=== PATIENT | male | born 1955 | race Caucasian/White ===

== ENCOUNTER 2017-08-23 12:21 | Inpatient (IN) | payer OTHER ==
[2017-08-23] VITALS (213 sets, daily range): BP systolic 132–146; BP diastolic 46–98; PULSE 82–93; TEMP 98.3–98.4; O2SAT 76–100
[~2017-08-23] VITALS: Ht 180.3 cm; Wt 59.9 kg
[~2017-08-23 12:21] MED LIST: NO HOME MEDICATIONS
[2017-08-23 12:50] LABS: BASO # 0.1 (0.0-0.2); BASO % 0.6 % (0.0-2.0); EOS % 0.3 % (0-4.0); GRAN # 7.2 (1.4-6.5); GRAN % 69.4 % (42.2-75.2); LYMPH # 2.1 (1.2-3.4); LYMPH % 20.2 % (20.0-51.0); MEAN CELL VOLUME 91 fl (80.0-100.0); MEAN CORPUSCULAR HEMOGLOBIN 31 pg (27.0-31.0); MEAN CORPUSCULAR HGB CONC 34 g/dl (33.0-37.0); MEAN PLATELET VOLUME 9.7 fl (7.4-10.4); MONO # 0.9 (0.1-0.6); PLATELET COUNT 255 K/mm3 (130-400); RED BLOOD COUNT 5.16 M/mm3 (4.20-5.60); REDCELL DISTRIBUTION WIDTH-CV 12.6 % (11.5-14.5)
[2017-08-23 13:06] LABS: ALBUMIN 4.1 gm/dL (3.5-5.0); BILIRUBIN,TOTAL 0.9 mg/dL (0.0-1.0); CALCIUM 9.6 mg/dL (8.4-10.2); CREATININE, serum 0.66 mg/dL (0.66-1.25); POTASSIUM 4.1 mmol/L (3.4-5.0); TOTAL PROTEIN 7.6 gm/dL (6.4-8.2)
[2017-08-23 13:25] LABS: TROPONIN-I 0.038 ng/mL (0.000-0.034)
[2017-08-24] VITALS (432 sets, daily range): BP systolic 123–139; BP diastolic 77–88; PULSE 71–120; TEMP 98–98.6; O2SAT 60–100
[2017-08-24 05:34] LABS: BASO # 0.1 (0.0-0.2); BASO % 0.6 % (0.0-2.0); EOS # 0.1 (0.0-0.7); EOS % 1.1 % (0-4.0); GRAN # 4.8 (1.4-6.5); GRAN % 61.5 % (42.2-75.2); HEMATOCRIT 39.1 % (42.0-52.0); HEMOGLOBIN 13.2 g/dl (13.5-18.0); LYMPH # 2.1 (1.2-3.4); LYMPH % 26.4 % (20.0-51.0); MEAN CELL VOLUME 91 fl (80.0-100.0); MEAN CORPUSCULAR HEMOGLOBIN 31 pg (27.0-31.0); MEAN CORPUSCULAR HGB CONC 34 g/dl (33.0-37.0); MEAN PLATELET VOLUME 9.5 fl (7.4-10.4); MONO # 0.8 (0.1-0.6); MONO % 9.8 % (1.7-9.3); PLATELET COUNT 198 K/mm3 (130-400); RED BLOOD COUNT 4.31 M/mm3 (4.20-5.60); REDCELL DISTRIBUTION WIDTH-CV 12.6 % (11.5-14.5)
[2017-08-24 05:43] LABS: PROTHROMBIN TIME 11.9 SECONDS (9.7-12.8)
[2017-08-24 05:47] LABS: CALCIUM 8.8 mg/dL (8.4-10.2); CREATININE, serum 0.66 mg/dL (0.66-1.25); POTASSIUM 3.9 mmol/L (3.4-5.0)
[2017-08-24] MEDS ORDERED: LEVAQUIN 750MG750 M1 PO (16:01)
[2017-08-24] MEDS ORDERED: PREDNISONE20 MG PO (16:01)
[2017-08-24] MEDS ORDERED: PROAIR HFA0.09 MG/AC IH (16:07)
[2017-08-24] MEDS ORDERED: IPRATROPIUM BROM3 M1 IH (16:10)
== END 2017-08-24 17:14 | disposition home or self-care (01) | DRG 181 ==
LOC: COL.ER 12:21 → ICU 15:19
PROVIDERS: Emergency Medicine; Internal Medicine Pulmonary Disease; Physician Assistant
PROC: 0B968ZX Drainage of Right Lower Lobe Bronchus, Via Natural or Artificial Opening Endoscopic, Diagnostic (ICD-10-PCS; 2017-08-24)
PROC: 0B988ZX Drainage of Left Upper Lobe Bronchus, Via Natural or Artificial Opening Endoscopic, Diagnostic (ICD-10-PCS; 2017-08-24)
PROC: 0B9B8ZX Drainage of Left Lower Lobe Bronchus, Via Natural or Artificial Opening Endoscopic, Diagnostic (ICD-10-PCS; 2017-08-24)
PROC: 0BB78ZX Excision of Left Main Bronchus, Via Natural or Artificial Opening Endoscopic, Diagnostic (ICD-10-PCS; 2017-08-24)
PROC: 0B958ZX Drainage of Right Middle Lobe Bronchus, Via Natural or Artificial Opening Endoscopic, Diagnostic (ICD-10-PCS; principal; 2017-08-24 10:00)
DX: C34.12 Malignant neoplasm of upper lobe, left bronchus or lung (principal); J98.11 Atelectasis; Z85.72 Personal history of non-Hodgkin lymphomas; F17.210 Nicotine dependence, cigarettes, uncomplicated; F10.10 Alcohol abuse, uncomplicated
CPT/HCPCS: 99223-AI; 99239; J1644; J1956; J2550; J2704; J7030; Q9967

== ENCOUNTER → 2017-09-01 | Outpatient (CLI) | payer OTHER ==
[~2017-09-01] MED LIST changes: +IPRATROPIUM BROM3 M1 IH; +LEVAQUIN 750MG750 M1 PO; +PREDNISONE20 MG PO; +PROAIR HFA0.09 MG/AC IH
== END ==
LOC: COL.RAD 07:30
DX: D41.01 Neoplasm of uncertain behavior of right kidney (principal); K76.9 Liver disease, unspecified; J90 Pleural effusion, not elsewhere classified; M62.58 Muscle wasting and atrophy, not elsewhere classified, other site; K80.20 Calculus of gallbladder without cholecystitis without obstruction; C34.90 Malignant neoplasm of unspecified part of unspecified bronchus or lung; Z98.890 Other specified postprocedural states
CPT/HCPCS: A9585; Q9967

== ENCOUNTER → 2017-09-16 | Outpatient (CLI) | payer OTHER ==
[~2017-09-16] VITALS: Ht 180.3 cm; Wt 61.7 kg
[~2017-09-16] MED LIST changes: +NORCO 325 MG-51 TAB PO
[2017-09-16 11:33] VITALS: BP 125/86; PULSE 100
== END ==
LOC: COL.RAD 11:02
DX: C34.90 Malignant neoplasm of unspecified part of unspecified bronchus or lung (principal)

== ENCOUNTER 2017-09-20 05:21 | Day surgery (SDC) | payer OTHER ==
[~2017-09-20] VITALS: Ht 180.3 cm; Wt 61.8 kg
[~2017-09-20 05:21] MED LIST changes: -NORCO 325 MG-51 TAB PO
[2017-09-20 05:52] VITALS: BP 125/84; PULSE 94; TEMP 97.7
[2017-09-20 08:04] VITALS: BP 110/74; PULSE 86
[2017-09-20 08:19] VITALS: BP 120/71; PULSE 69
[2017-09-20] MEDS ORDERED: NORCO 325 MG-51 TAB PO (08:31)
[2017-09-20 08:34] VITALS: BP 122/76; PULSE 78
== END 2017-09-20 09:05 | disposition home or self-care (01) ==
LOC: SDCO 05:21
DX: C34.90 Malignant neoplasm of unspecified part of unspecified bronchus or lung (principal); F17.210 Nicotine dependence, cigarettes, uncomplicated; J44.9 Chronic obstructive pulmonary disease, unspecified; M19.90 Unspecified osteoarthritis, unspecified site; I20.9 Angina pectoris, unspecified; Z88.2 Allergy status to sulfonamides; Z79.51 Long term (current) use of inhaled steroids; Z80.0 Family history of malignant neoplasm of digestive organs; Z80.1 Family history of malignant neoplasm of trachea, bronchus and lung; Z85.72 Personal history of non-Hodgkin lymphomas
CPT/HCPCS: C1788; J0690; J1644; J2250; J2405; J2704; J3010; J7030

== ENCOUNTER → 2018-10-17 | Outpatient (CLI) | payer MEDICAID ==
[~2018-10-17] MED LIST changes: +NORCO 325 MG-51 TAB PO
== END ==
LOC: COL.RAD 12:19
DX: C34.02 Malignant neoplasm of left main bronchus (principal); C79.31 Secondary malignant neoplasm of brain
CPT/HCPCS: A9585

== ENCOUNTER 2018-10-29 11:56 | Inpatient (IN) | payer MEDICAID ==
[~2018-10-29] VITALS: Ht 180.3 cm; Wt 68.9 kg
[2018-10-29] MEDS ORDERED: BENADRYL25 M2 PO (13:05)
[2018-10-29] MEDS ORDERED: PRIL40 PO (13:06)
[2018-10-29 14:44] LABS: COLLECTION METHOD CLEAN CATCH
[2018-10-29 14:51] LABS: PH 6 (5-8); SQUAMOUS EPITHELIAL None Seen /hpf; URINE APPEARANCE Clear; URINE BACTERIA None Seen /hpf; URINE BILIRUBIN Negative (NEGATIVE); URINE BLOOD Negative (NEGATIVE); URINE COLOR Yellow; URINE GLUCOSE Negative (NEGATIVE); URINE KETONE Negative (NEGATIVE); URINE LEUKOCYTE ESTERASE Negative (NEGATIVE); URINE NITRATE Negative (NEGATIVE); URINE PROTEIN(semi-quant) 1+ (NEGATIVE); URINE RBC 0-2 /hpf
[2018-10-29 15:15] LABS: MEAN CELL VOLUME 81 fl (80.0-100.0); MEAN CORPUSCULAR HGB CONC 32 g/dl (33.0-37.0); MEAN PLATELET VOLUME 9.5 fl (7.4-10.4); PLATELET COUNT 646 K/mm3 (130-400); RED BLOOD COUNT 3.34 M/mm3 (4.20-5.60); REDCELL DISTRIBUTION WIDTH-CV 16.4 % (11.5-14.5)
[2018-10-29 15:21] LABS: HEMOGLOBIN 8.5 g/dl (13.5-18.0); MEAN CORPUSCULAR HEMOGLOBIN 25 pg (27.0-31.0)
[2018-10-29 15:28] LABS: BILIRUBIN,TOTAL 0.6 mg/dL (0.0-1.0); CALCIUM 9.2 mg/dL (8.4-10.2); CREATININE, serum 0.75 (0.66-1.25); POTASSIUM 3.8 mmol/L (3.4-5.0); TOTAL PROTEIN 6.4 gm/dL (6.4-8.2)
[2018-10-29 15:54] LABS: BAND 2 % (0-10); LYMPHOCYTE 3 % (20.0-51.0); NEUTROPHILS 93 % (42.0-75.2)
[2018-10-29 15:55] LABS: PLATELET ESTIMATE INCREASED (NORMAL)
[2018-10-29 16:00] LABS: ANISOCYTOSIS 1+; HYPOCHROMIA 2+; MICROCYTOSIS 2+; STOMATOCYTE 1+
--- NOTE | 2018-10-29 19:35 | NUR ---
Received patient from ED per stretcher. Is alert and oriented x3. Son and daughter at bedside. Has right chest port accessed. Has oxygen on at 3L/nc. Patient has a stage II wound to top of buttock crease. Has bruises to left arm from fall at home. Admission questions reviewed with patient and daughter.
[2018-10-29] MEDS ORDERED: MEGACE ORAL40 MG/ML PO (19:59)
[2018-10-29] MEDS ORDERED: COMPAZINE 110 MG/TAB PO (20:05)
[2018-10-29] MEDS ORDERED: 00186-0370-20 IH (20:06)
[2018-10-29 20:45] VITALS: BP 98/62; PULSE 86; TEMP 97.5
[2018-10-29 20:52] VITALS: BP 98/62; PULSE 85; TEMP 97.5
--- NOTE | 2018-10-29 21:26 | NUR ---
MEDICATED WITH MORPHINE 2MG IVP FOR PAIN TO LEFT BACK 12/02, ALSO GIVEN COMPAZINE ORALLY AND BENADRYL 25MG ORALLY AT THIS TIME. IVF INFUSING TO RIGHT PORT AND VANCOMYCIN INFUSING WITHOUT PROBLEM. PLACED MEPILEX TO SACRUM, HAS STAGE II ULCER TO TOP OF BUTTOCK CREASE.
--- NOTE | 2018-10-29 23:43 | NUR ---
PATIENT COMPLAINING OF LEFT BACK PAIN. MEDICATED WITH MORPHINE 2MG IVP AT THIS TIME. HAS OXYGEN ON AT 3L/NC.
--- NOTE | 2018-10-29 23:59 | NUR ---
Phoned Glo EATON regarding patients high heart rate as reported by ICU motor vehicle technician.
[2018-10-30] VITALS (1183 sets, daily range): BP systolic 90–111; BP diastolic 53–76; PULSE 75–118; TEMP 97.6–99; O2SAT 64–100
[2018-10-30 00:13] LABS: CALCIUM 8.1 mg/dL (8.4-10.2); CREATININE, serum 0.68 (0.66-1.25); MAGNESIUM 1.6 mg/dL (1.6-2.3); POTASSIUM 3.3 mmol/L (3.4-5.0)
--- NOTE | 2018-10-30 00:34 | NUR ---
REPORT TO LINDA MITTAL.
[2018-10-30 00:40] LABS: ARTERIAL BLD GAS O2 SATURATION 94.7 % (92-100); ARTERIAL BLOOD GAS BASE EXCESS -2.6 (-2-2); ARTERIAL BLOOD GAS PCO2 29.5 mmHg (35-45); ARTERIAL BLOOD GAS PO2 77.8 mmHg (80-100); ARTERIAL BLOOD GAS pH 7.47 (7.35-7.45)
--- NOTE | 2018-10-30 01:00 | NUR ---
Transferred to ICU 6 per bed, personal belongings sent with patient.
[2018-10-30 01:01] LABS: MEAN CELL VOLUME 81 fl (80.0-100.0); MEAN CORPUSCULAR HGB CONC 32 g/dl (33.0-37.0); MEAN PLATELET VOLUME 9.5 fl (7.4-10.4); PLATELET COUNT 557 K/mm3 (130-400); RED BLOOD COUNT 2.81 M/mm3 (4.20-5.60); REDCELL DISTRIBUTION WIDTH-CV 16.8 % (11.5-14.5)
[2018-10-30 01:06] LABS: HEMATOCRIT 22.8 % (42.0-52.0); HEMOGLOBIN 7.3 g/dl (13.5-18.0); MEAN CORPUSCULAR HEMOGLOBIN 26 pg (27.0-31.0)
[2018-10-30 01:49] LABS: BAND 24 % (0-10); LYMPHOCYTE 6 % (20.0-51.0); METAMYELOCYTE 1 % (0-0); NEUTROPHILS 67 % (42.0-75.2)
[2018-10-30 01:50] LABS: ANISOCYTOSIS 1+; OVALOCYTES 1+; POIKILOCYTOSIS 1+; POLYCHROMASIA 1+; TARGET CELLS 1+
[2018-10-30 01:52] LABS: HYPOCHROMIA 2+; PLATELET ESTIMATE NORMAL (NORMAL)
[2018-10-30 05:35] LABS: BASO % 0.2 % (0.0-2.0); EOS % 0.1 % (0-4.0); GRAN # 19.8 (1.4-6.5); GRAN % 89.4 % (42.2-75.2); LYMPH # 0.7 (1.2-3.4); LYMPH % 3.3 % (20.0-51.0); MEAN CELL VOLUME 81 fl (80.0-100.0); MEAN CORPUSCULAR HGB CONC 32 g/dl (33.0-37.0); MEAN PLATELET VOLUME 9.2 fl (7.4-10.4); MONO # 0.9 (0.1-0.6); MONO % 3.9 % (1.7-9.3); PLATELET COUNT 548 K/mm3 (130-400); RED BLOOD COUNT 2.95 M/mm3 (4.20-5.60); REDCELL DISTRIBUTION WIDTH-CV 16.7 % (11.5-14.5)
[2018-10-30 05:37] LABS: HEMATOCRIT 23.9 % (42.0-52.0); HEMOGLOBIN 7.6 g/dl (13.5-18.0); MEAN CORPUSCULAR HEMOGLOBIN 26 pg (27.0-31.0)
[2018-10-30 05:47] LABS: CREATININE, serum 0.63 (0.66-1.25); MAGNESIUM 2.9 mg/dL (1.6-2.3); PHOSPHOROUS 3.5 mg/dL (2.5-4.5); POTASSIUM 3.9 mmol/L (3.4-5.0)
--- NOTE | 2018-10-30 07:00 | NUR ---
Bedside shift report received from KYRIE Chino. Patient is awake, alert, and responds appropriately. Full assessment completed. Vital signs stable at this time. Patient has no complaints or concerns at this time. Call light within reach. Bed in lowest position. Side rails up x3.
--- NOTE | 2018-10-30 08:05 | NUR ---
Patient's daughter, Andie Sylvester, called to receive update on her father. Daughter notified of patient transfer to ICU and reason for transferring. Daughter's questions and concerns answered at this time.
--- NOTE | 2018-10-30 08:57 | NUR ---
SW met with the patient to discuss a discharge plan. The pt live alone in [place]. Pt reports his daughter lives five miles away and his son lives [address] and provide lots of support. The pt uses oxygen and receives his supplies from [employer] and has a walker he uses daily. The pt's PCP is LAUREN Gonzales and receives his medication from [facility] in [place] with no difficulties. The pt does not have advanced directives in the EMR but reports he does have them completed and designate his daughter, Rin Sylvester and his son Reagan Castillo. Pt plans to return home with transportation provided by his son. SW will continue to follow to assist with any discharge needs. Rin Sylvester Reagan Castillo
--- NOTE | 2018-10-30 13:15 | NUR ---
Patient's daugther, Andie, is present at the bedside at this time. Dr. Barbosa at the bedside to assess the patient and discuss the procedure. Patient and daughter's questions were answered and discussed the patient's code status. The patient tells his daughter that he does not want to be intubated. The patient and daughter together decide on DO NOT INTUBATE code status and order placed.
--- NOTE | 2018-10-30 14:26 | NUR ---
Pallative care consult was ordered. SW will continue to follow.
--- NOTE | 2018-10-30 15:07 | NUR ---
Met with pt and his daughter this afternoon to discuss goals of care. Pt is still very determined to keep fighting at this time after everything he has been through this last year. He is planning on talking with Dr Shepherd tomorrow morning about where we go from here with cancer treatments/chemotherapy and is well aware that chemotherapy may be stopped. See palliative care consult.
--- NOTE | 2018-10-30 15:19 | NUR ---
Pt reports that he does not want to live on machines. Because of this he does not want to be intubated. When asked if his heart were to stop, he reports wanting compressions to be done to try to keep him alive if at all possible but without a breathing tube. This was repeated and verified several times.
--- NOTE | 2018-10-30 15:53 | NUR ---
Pt's returned case inspector Ana Luisa from [facility] p# contacted SW about a Crisis Expection form. Ana Luisa to fax form to SW. SW will continue to follow.
--- NOTE | 2018-10-30 17:26 | NUR ---
Patient is possibly having a procedure done this evening, holding food and water intake for now.
--- NOTE | 2018-10-30 18:20 | NUR ---
Dr. Barbosa at bedside to perform chest tube placement. Anesthesia present.
--- NOTE | 2018-10-30 19:53 | NUR ---
Bedside shift report given to KYRIE Chino at this time. Patient remains stable in no apparent distress with no complaints or concerns at this time. Call light within reach. Bed in lowest position. Side rails up x3. Family at bedside.
[2018-10-31] VITALS (880 sets, daily range): BP systolic 107–141; BP diastolic 61–97; PULSE 82–121; TEMP 97.5–98.6; O2SAT 70–100
[2018-10-31 07:08] LABS: MEAN CELL VOLUME 81 fl (80.0-100.0); MEAN CORPUSCULAR HGB CONC 31 g/dl (33.0-37.0); MEAN PLATELET VOLUME 9.5 fl (7.4-10.4); PLATELET COUNT 558 K/mm3 (130-400); RED BLOOD COUNT 2.88 M/mm3 (4.20-5.60); REDCELL DISTRIBUTION WIDTH-CV 17.1 % (11.5-14.5)
[2018-10-31 07:11] LABS: CALCIUM 8.2 mg/dL (8.4-10.2); CREATININE, serum 0.64 (0.66-1.25); POTASSIUM 4.5 mmol/L (3.4-5.0)
[2018-10-31 07:12] LABS: HEMATOCRIT 23.3 % (42.0-52.0); HEMOGLOBIN 7.3 g/dl (13.5-18.0); MEAN CORPUSCULAR HEMOGLOBIN 25 pg (27.0-31.0)
[2018-10-31 08:02] LABS: BAND 2 % (0-10); LYMPHOCYTE 5 % (20.0-51.0); NEUTROPHILS 93 % (42.0-75.2)
[2018-10-31 08:03] LABS: ANISOCYTOSIS 1+; HYPOCHROMIA 3+; PLATELET ESTIMATE INCREASED (NORMAL)
--- NOTE | 2018-10-31 08:34 | NUR ---
Pt resting in bed, c/o 7/10 pain in lower back, family discussing DNR/DNI status with each other and pt. Possible tx to floor today. CT remains in place, pt denies pain at the site. Will tx pain and continue to monitor.
--- NOTE | 2018-10-31 12:16 | NUR ---
Met with pt and his daughter Darren again today after they had visited with their doctors. Pt is at this time wanting to continue his care with antibiotics, and IV fluids, and the chest tube drainage. He is still wanting to fight his illness as long as he can but also knows that he is getting weaker. They are aware that his chemotherapy will not be given based on his current state and that he may not get stronger to allow further chemotherapy. While Darren is tearful, she is realistic, knows he father's time is limited but wants to respect his wishes and at this time he still wants to keep fighting. There are two sons also but neither have been very involved in the care of their father--he turns to darren and verbalizes trust in her and her decisions.
--- NOTE | 2018-10-31 14:15 | NUR ---
SW attended clinical rounds. Patient's daughter was also present. Patient will be moved to the surgical floor today. Doctor reports that once patient 's chest tube is removed, PT/OT will do an evaluation. SW will continue to follow.
--- NOTE | 2018-10-31 15:58 | NUR ---
Report given to KYRIE Artis, pt denies pain at this time VSS or at baseline, will tx pt to 322-2 and tx care to KYRIE Hoff
--- NOTE | 2018-10-31 17:21 | NUR ---
PT TO ROOM 322 @ 1700. REPORT FROM JUDD. PT SETTLED TO ROOM.
--- NOTE | 2018-10-31 19:40 | NUR ---
Pt. laying in bed at this time. Pt. is A&OX3, assessment complete. Port to Rt. chest patent, IV fluids infusing per orders. Pt. denies pain at this time. Chest tube to lt. chest noted, to waterseal with 20cm suction. Pt. denies further needs, at this time. Call light within reach.
[2018-11-01 03:38] VITALS: BP 133/89; PULSE 117; TEMP 97.7
[2018-11-01 06:06] LABS: MEAN CELL VOLUME 81 fl (80.0-100.0); MEAN CORPUSCULAR HGB CONC 32 g/dl (33.0-37.0); MEAN PLATELET VOLUME 9.4 fl (7.4-10.4); PLATELET COUNT 602 K/mm3 (130-400); RED BLOOD COUNT 2.98 M/mm3 (4.20-5.60); REDCELL DISTRIBUTION WIDTH-CV 17.2 % (11.5-14.5)
[2018-11-01 06:07] LABS: HEMATOCRIT 24.1 % (42.0-52.0); HEMOGLOBIN 7.6 g/dl (13.5-18.0); MEAN CORPUSCULAR HEMOGLOBIN 26 pg (27.0-31.0)
[2018-11-01 06:15] LABS: ALBUMIN 2.3 gm/dL (3.5-5.0); BILIRUBIN,TOTAL 0.2 mg/dL (0.0-1.0); CALCIUM 8.2 mg/dL (8.4-10.2); CREATININE, serum 0.74 (0.66-1.25); POTASSIUM 4.2 mmol/L (3.4-5.0); TOTAL PROTEIN 4.9 gm/dL (6.4-8.2)
[2018-11-01 06:25] LABS: ANISOCYTOSIS 1+; BAND 18 % (0-10); HYPOCHROMIA 1+; LYMPHOCYTE 3 % (20.0-51.0); METAMYELOCYTE 7 % (0-0); NEUTROPHILS 68 % (42.0-75.2); PLATELET ESTIMATE INCREASED (NORMAL)
--- NOTE | 2018-11-01 06:59 | NUR ---
report from Frank MITTAL.
[2018-11-01 08:05] VITALS: BP 119/75; PULSE 57; TEMP 97.8
[2018-11-01 08:20] LABS: PATHOLOGY DIFF REVIEW OK
--- NOTE | 2018-11-01 10:42 | NUR ---
Initial visit; Patient thanked Material Processor for looking in on him and offering spiritual care, though patient states he is not mormonism. Material Processor just mentioned she is always available to just listen.+
--- NOTE | 2018-11-01 10:47 | NUR ---
DR GUERRERO IN TO SEE PATIENT AWAITING RESULTS OF CHEST XRAY. PT RESTING IN BED, CHEST TUBE TO SUCTION WITH MINIMAL OUTPUT. PT IS NPO FOR SURGERY LATER TODAY TO ADJUST CHEST TUBE. IV FLUIDS RUNNING PER ORDERS.
[2018-11-01 11:22] VITALS: BP 115/73; PULSE 54; TEMP 98.1
--- NOTE | 2018-11-01 14:07 | NUR ---
Luke reports that he is eating more now and is feeling positive about that. His daughter is not planning on coming today but should be here tomorrow. He has not changed his mind about his code status or desiring to try what he can to get better.
--- NOTE | 2018-11-01 14:59 | NUR ---
Edison called patients marbin Justin and left a voicemail to see what is covered by his insurance for placement.
--- NOTE | 2018-11-01 15:56 | NUR ---
pt to surgery per bed with Joanne MITTAL.
--- NOTE | 2018-11-01 16:15 | NUR ---
Spoke with pt's daughter while he is in surgery having chest tube replaced. She reports she came since he was having a procedure done.
[2018-11-01 19:29] VITALS: BP 107/62; PULSE 116; TEMP 98.6
--- NOTE | 2018-11-01 20:00 | NUR ---
Patient complaining of left chest pain secondary to chest tube. Has left chest tube to 20cm suction with yellow drainage. Has oxygen at 3L/nc, right chest Port accessed and IVF infusing without problem. Medicated with Morphine 2mg IVP at this time for pain 10/02. Has pitting edema to left arm, hand and lower legs. Coughs up yellow sputum at this time.
[2018-11-01 20:30] VITALS: BP 110/74; PULSE 119; TEMP 97.6
[2018-11-01 23:43] VITALS: BP 125/71; PULSE 117; TEMP 98.4
[2018-11-02] VITALS (136 sets, daily range): BP systolic 94–123; BP diastolic 68–79; PULSE 67–108; TEMP 97.5–99.3; O2SAT 71–100
--- NOTE | 2018-11-02 02:00 | NUR ---
Up to BSC, has liquid BM and voids. Back to bed with 1 assist.
--- NOTE | 2018-11-02 06:30 | NUR ---
Patient medicated with Morphine 2mg IV for left chest wall pain.
[2018-11-02 06:37] LABS: MEAN CELL VOLUME 82 fl (80.0-100.0); MEAN CORPUSCULAR HGB CONC 31 g/dl (33.0-37.0); MEAN PLATELET VOLUME 9.6 fl (7.4-10.4); PLATELET COUNT 578 K/mm3 (130-400); REDCELL DISTRIBUTION WIDTH-CV 17.3 % (11.5-14.5)
[2018-11-02 06:40] LABS: HEMATOCRIT 24.6 % (42.0-52.0); HEMOGLOBIN 7.6 g/dl (13.5-18.0); MEAN CORPUSCULAR HEMOGLOBIN 25 pg (27.0-31.0)
[2018-11-02 06:47] LABS: CALCIUM 7.4 mg/dL (8.4-10.2); CREATININE, serum 0.7 (0.66-1.25); POTASSIUM 3.5 mmol/L (3.4-5.0)
--- NOTE | 2018-11-02 07:00 | NUR ---
Report from Angely MITTAL.
[2018-11-02 07:30] LABS: BAND 11 % (0-10); LYMPHOCYTE 2 % (20.0-51.0); METAMYELOCYTE 6 % (0-0); MYELOCYTE 2 % (0-0); NEUTROPHILS 78 % (42.0-75.2)
[2018-11-02 07:31] LABS: HYPOCHROMIA 2+; PLATELET ESTIMATE INCREASED (NORMAL)
[2018-11-02 07:32] LABS: MICROCYTOSIS 1+
[2018-11-02 08:19] LABS: PATHOLOGY DIFF REVIEW OK
--- NOTE | 2018-11-02 11:25 | NUR ---
PT SITTING UP IN BED. HAVING BETTER DAY TODAY. CHEST TUBE TO SUCTION WITH YELLOWISH DRAINAGE IN TUBE AND CONTAINER. DR LUKE ORDING A [facility] EVALUATION. PT ON O2 @ 3 L PNC.
--- NOTE | 2018-11-02 12:26 | NUR ---
Met with pt this am. he reports he is slowly feeling better and is pleased with his progress. Reports is eating better and tube is draining better. No change in his wishes at this time.
--- NOTE | 2018-11-02 13:14 | NUR ---
SW talked with patients [facility] CM who is forwarding on the info to the brand planner to contact this sw. Need for [facility] discussed.
--- NOTE | 2018-11-02 14:01 | NUR ---
pt transfered to ICU 3 report to Segun MITTAL.
--- NOTE | 2018-11-02 14:02 | NUR ---
IV bolus pushed over 2 mins of cardizem. Patient tolerated well.
--- NOTE | 2018-11-02 15:28 | NUR ---
ALEENA faxed referral to [facility]. Jeremy reports he feels the patient is appropriate and will begin workup as it is a case by case contract with Medicare [employer]. ALEENA spoke with patients Medicare mechanical planner Елена, . She reports the patient has skilled benefits and that she will fax in network options. for specialty hospitals [facility] is in network but they also work with [facility]. ALEENA will follow up with patient.
--- NOTE | 2018-11-02 19:43 | NUR ---
Report called to KYRIE Stout.
--- NOTE | 2018-11-02 21:38 | NUR ---
PT ARRIVED FROM ICU VIA BED, HOOKED UP CHEST TUBE CANISTER TO SUCTION WITH SOFT BUBBLES. PT HAS PAIN RATED AT 6/10, GAVE NORCO FOR PAIN. ALSO GIVE WARM BLANKET FOR COMFORT. PT HAD FAMILY MEMBERS COME TO VISIT. NO FURTHER NEEDS AT THIS TIME, CALL LIGHT WITHIN REACH.
[2018-11-03] VITALS (7 sets, daily range): BP systolic 97–116; BP diastolic 60–76; PULSE 43–111; TEMP 97.3–98.8
--- NOTE | 2018-11-03 05:30 | NUR ---
CALLED AMBROCIO BARKSDALE IN REFERENCE TO EKG SHOWING ATRIAL FIBRILLATION. RT ADVISED THAT EKG WAS DONE WITH PT ON HIS SIDE AND MAY NOT BE ACCURATE. NO CHANGES FROM TELEMETRY SHOWING AND PT FEELS FINE. NO NEW ORDERS GIVEN.
--- NOTE | 2018-11-03 05:32 | NUR ---
PT REPOSITION TO RIGHT SIDE. SMALL AMOUNT OF DRAINAGE ON CHEST TUBE DRSG. CHEST TUBE TO SUCTION AND NO CHANGE IN BUBBLING ON SUCTION CANISTER. NO FURTHER NEEDS AT THIS TIME, CALL LIGHT WITHIN REACH.
[2018-11-03 06:28] LABS: MEAN CELL VOLUME 81 fl (80.0-100.0); MEAN CORPUSCULAR HGB CONC 32 g/dl (33.0-37.0); MEAN PLATELET VOLUME 9.3 fl (7.4-10.4); PLATELET COUNT 617 K/mm3 (130-400); RED BLOOD COUNT 3.13 M/mm3 (4.20-5.60); REDCELL DISTRIBUTION WIDTH-CV 17.5 % (11.5-14.5)
[2018-11-03 06:36] LABS: HEMATOCRIT 25.3 % (42.0-52.0); HEMOGLOBIN 8.1 g/dl (13.5-18.0); MEAN CORPUSCULAR HEMOGLOBIN 26 pg (27.0-31.0)
[2018-11-03 06:38] LABS: CALCIUM 7.9 mg/dL (8.4-10.2); CREATININE, serum 0.67 (0.66-1.25); POTASSIUM 3.6 mmol/L (3.4-5.0)
--- NOTE | 2018-11-03 06:59 | NUR ---
CALLED DR. BHAKTA IN REFERENCE TO PT'S WBC 24.5. NO NEW ORDERS GIVEN.
--- NOTE | 2018-11-03 08:00 | NUR ---
PATIENT IS RESTING IN BED THIS MORNING. PATIENT IS A&O. IRREGULAR HEART RHYTHM WITH REGULAR RATE NOTED, OTHERWISE VSS. TELE IN PLACE. PURSE-LIP BREATHING NOTED, PATIENT STATES THAT HE HAS SOB WITH ACTIVITY. ALL RIGHT LUNG WILKS CLEAR UPON AUSCULTATION. LEFT UPPER LUNG LOBE DIMINISHED UPON AUSCULTATION AND FINE CRACKLES AUSCULTATED OVER LEFT LOWER LUNG LOBE. GENERALIZED WEAKNESS NOTED. BOWEL SOUNDS ACTIVE ALL FOUR QUADRANTS. PATIENT TOLERATING DIET WITHOUT COMPLAINTS OF N/V. POSITIVE PEDAL PULSES EQUAL BILATERALLY. NON-PITTING EDEMA TO BLE. 2+ PITTING-EDEMA TO FEET BILATERALLY. CHEST TUBE TO LEFT CHEST DRAINING THIN YELLOW FLUID INTO WATERSEAL CANISTER WITH 20 CM OF SUCTION. CHEST TUBE INSERTION SITE DRESSED WITH GAUZE & HYPAFIX WITH YELLOW DRAINAGE PRESENT ON DRESSING. IV FLUIDS INFUSING TO RIGHT CHEST JED CATH. CALL LIGHT WITHIN REACH. PATIENT DENIES ANY OTHER NEEDS AT THIS TIME.
--- NOTE | 2018-11-03 08:40 | NUR ---
DR. BHAKTA CALLED AND NOTIFIED OF TELE READING SHOWING POSSIBLE A.FIB. EKG ORDERED PER PROTOCOL.
[2018-11-03 09:41] LABS: BAND 20 % (0-10); LYMPHOCYTE 2 % (20.0-51.0); METAMYELOCYTE 4 % (0-0); MYELOCYTE 7 % (0-0); NEUTROPHILS 66 % (42.0-75.2); NUCLEATED RED BLOOD CELL 2 (0-6)
[2018-11-03 09:43] LABS: ANISOCYTOSIS 1+; PLATELET ESTIMATE INCREASED (NORMAL)
--- NOTE | 2018-11-03 10:48 | NUR ---
ALEENA spoke with Jeremy from [employer]. He reports a prior auth will be sent to [facility] Medicaid today.
--- NOTE | 2018-11-03 15:00 | NUR ---
REPORT GIVEN TO KYRIE ASTORGA.
--- NOTE | 2018-11-03 16:29 | NUR ---
Jeremy, with [facility], reports that the earliest the patient's insurance would give authorization would probably be Tuesday, 11/06. ALEENA updated the clinica team.
--- NOTE | 2018-11-03 18:24 | NUR ---
Patient is sitting up in bed looking over supper menu. Medications administered. Offered assistance to order meal, declined. Personal items and call light is within reach.
--- NOTE | 2018-11-03 21:30 | NUR ---
PT'S HEART RATE GOES UP INTO THE 140s EVERYTIME HE USES THE URINAL. CALLED AMBROCIO BARKSDALE AND AMBROCIO BARKSDALE ORDERED EKG AND THIS WAS DONE A COUPLE OF TIMES, EACH TIME EKG WAS THE SAME ONLY SHOWING TACHYCARDIA. PT WAS IN NO DISTRESS. PT DENIED ANY CHEST PAIN OR PALPATIONS. NO OTHER ORDERS GIVEN. PT WAS ASSISTED SEVERAL TIMES TO GET COMFORTABLE IN BED. PT ALSO HAD PAIN IN LEFT AREA WERE CHEST TUBE IS. NO OTHER NEEDS CALL LIGHT WITHIN REACH.
--- NOTE | 2018-11-03 23:20 | NUR ---
CALLED DR. WARD IN REFERENCE TO PT'S HEART RATE GOING UP EVERYTIME HE USES THE URINAL AND THEN BACK DOWN. DR. WARD GAVE NO NEW ORDERS AND ADVISED JUST TO GIVE CARDIZEM ORDERED.
[2018-11-04 03:25] VITALS: BP 115/63; PULSE 61; TEMP 97.8
[2018-11-04 07:44] LABS: MEAN CELL VOLUME 82 fl (80.0-100.0); MEAN CORPUSCULAR HGB CONC 31 g/dl (33.0-37.0); PLATELET COUNT 611 K/mm3 (130-400); REDCELL DISTRIBUTION WIDTH-CV 18.4 % (11.5-14.5)
[2018-11-04 07:45] LABS: HEMATOCRIT 30.2 % (42.0-52.0); HEMOGLOBIN 9.4 g/dl (13.5-18.0); MEAN CORPUSCULAR HEMOGLOBIN 25 pg (27.0-31.0)
[2018-11-04 07:50] LABS: CALCIUM 8.3 mg/dL (8.4-10.2); CREATININE, serum 0.71 (0.66-1.25); POTASSIUM 3.5 mmol/L (3.4-5.0)
[2018-11-04 08:07] VITALS: BP 96/57; PULSE 58; TEMP 97.9
[2018-11-04 08:20] LABS: BAND 11 % (0-10); LYMPHOCYTE 12 % (20.0-51.0); NEUTROPHILS 72 % (42.0-75.2)
[2018-11-04 08:21] LABS: PLATELET ESTIMATE INCREASED (NORMAL)
--- NOTE | 2018-11-04 09:20 | NUR ---
Assessement complete. Patient A&Ox3. VSS. 3.5 L NC O2, no reported SOB. Telemetry on chest. Reporting pain in left side, pain medication given when requested. Port right upper chest, CDI. Chest tube left side suction at 15cm. Yellow output from chest tube. Water seal, continuous bubbling. No further needs expressed from patient. Call light within reach
--- NOTE | 2018-11-04 11:29 | NUR ---
Patient was sleeping.
[2018-11-04 12:04] VITALS: BP 118/98; PULSE 152; TEMP 97.2
--- NOTE | 2018-11-04 13:14 | NUR ---
Patient taken by wheelchair to CT. Chest tube suction removed from canister. Patient holding on lap in wheelchair. No further needs expressed from patient.
[2018-11-04 15:49] VITALS: BP 104/67; PULSE 79; TEMP 97.6
--- NOTE | 2018-11-04 17:24 | NUR ---
Patient has been resting in bed most of the shift. A&Ox3, reporting pain in lower back. Pain medication given when requested. VSS, HR increases with activity, telemetry on chest. 3.5L NC O2, no reported SOB. Chest tube 15cm suction with yellow output. Patient has had 2 loose BM's. PAC CDI, fluids infusing. No further needs expressed from patient. Call light within reach
--- NOTE | 2018-11-04 19:47 | NUR ---
CALLED DR. NOLASCO IN REFER TO PT'S HR IN 170S FOR OVER 5 MINUTES WITH NO MOVEMENT. RECEIVED ORDERS FOR DIGOXIN 0.25 MG IV NOW AND THEN REPEAT IN 6 HOURS FROM NOW SAME DOSAGE.
[2018-11-04 20:12] VITALS: BP 117/59; PULSE 68; TEMP 97.6
--- NOTE | 2018-11-04 20:30 | NUR ---
PT IN BED WITH HOB ELEVATED TO 60 DEGREE ANGLE. PT SLEEPING ON AND OFF. PT WAS DRINKING SEVERAL CUPS OF COFFEE ALL DAY LONG. ADVISED PT THAT THE COFFEE MAYBE THE REASON THAT HIS HEART RATE KEEPS GOING UP. PT ADVISED THAT HE WILL JUST DRINK WATER FOR NOW. PT HAS NO FURTHER NEEDS CALL LIGHT WITHIN REACH.
[2018-11-05] VITALS (7 sets, daily range): BP systolic 95–116; BP diastolic 56–77; PULSE 61–164; TEMP 97–98.2
--- NOTE | 2018-11-05 05:47 | NUR ---
PT'S HR WENT UP BETWEEN 140 AND 160, 30 MINUTES AFTER GIVING COFFEE TO PT. HR STAYED UP FOR MORE THAN 5 MINUTES, CALL AMBROCIO BARKSDALE RIGHT AWAY AND RECEIVED ORDER FOR EKG. CALLED RT AND HAD EKG DONE. PT DENIED PAIN OR DISCOMFORT. EKG SHOWED ATRIAL FIBRILLATION WITH RVR, BUT AMBROCIO BARKSDALE WENT OVER EKG AND SAW P-WAVES ON EKG. WAS ADVISED BY AMRBOCIO BARKSDALE TO CALL DR. AGUILAR. CALLED DR. AGUILAR AND ADVISED WHAT WAS GOING ON AND HE ADVISED NOT TO DO ANYTHING, HE WILL LOOK AT THE EKG WHEN HE GETS IN. CALLED AMBROCIO BARKSDALE AND ADVISED WHAT DR. AGUILAR HAD ADVISED. RECEIVED ORDER FROM AMBROCIO BARKSDALE NO CAFFINE FOR PT.
--- NOTE | 2018-11-05 08:40 | NUR ---
Pt alert and oriented. Pt pain is in rated where the left chest tube is inserted per pt. Pt states increased movements makes it worse. Pt isreal SOB at rest but SOB with minimal exertion and wears oxygen via nasal cannula to maintain saturations above 90%. Pt central line gustavo cath has blood return noted and flushes easily. Pt has mepilex on sacral ulcer. Pt assisted to BSC this am for stool that was dark brown and liquid this am. Pt chest tube intact and drsg CDI and bubbles noted in chest tube chamber. Pt has call light in reach and denies needs at this time.
[2018-11-05 08:44] LABS: MEAN CELL VOLUME 83 fl (80.0-100.0); MEAN CORPUSCULAR HGB CONC 32 g/dl (33.0-37.0); MEAN PLATELET VOLUME 9.4 fl (7.4-10.4); PLATELET COUNT 556 K/mm3 (130-400); RED BLOOD COUNT 3.53 M/mm3 (4.20-5.60); REDCELL DISTRIBUTION WIDTH-CV 19.5 % (11.5-14.5)
[2018-11-05 09:08] LABS: CALCIUM 8.1 mg/dL (8.4-10.2); CREATININE, serum 0.77 (0.66-1.25); POTASSIUM 3.6 mmol/L (3.4-5.0)
[2018-11-05 09:15] LABS: HEMATOCRIT 29.2 % (42.0-52.0); HEMOGLOBIN 9.2 g/dl (13.5-18.0); MEAN CORPUSCULAR HEMOGLOBIN 26 pg (27.0-31.0)
[2018-11-05 09:48] LABS: LYMPHOCYTE 6 % (20.0-51.0); METAMYELOCYTE 1 % (0-0); MYELOCYTE 1 % (0-0); NEUTROPHILS 89 % (42.0-75.2); PLATELET ESTIMATE INCREASED (NORMAL)
--- NOTE | 2018-11-05 17:02 | NUR ---
Pt alert and oriented but confused to plan of care at times and needs review frequently. Pt pain managed with PRN NOrco pt's BP little soft at times today. Pt had 2 doses of K+ per protocol without difficulty. Pt currently NSR pt HR varies and as high as 170's after sips of coffee at lunch. Pt denies needs. Pt IV patent no redness or infiltration noted. Pt has call light in reach and daughter at bedside. Pt chest tube in place and drsg CDI.
--- NOTE | 2018-11-05 19:17 | NUR ---
Pt has had 50 cc yellow output from chest tube. Drsg CDI and patent tubing.
--- NOTE | 2018-11-05 20:59 | NUR ---
PT SITTING UP IN BED AND HAS BEEN REPOSITIONED SEVERAL TIMES WITHIN THE LAST HOUR. PT ALSO GIVEN PAIN MEDICATION FOR LEFT CHEST PAIN WERE CHEST TUBE IS PLACED. PT ADVISED TO TAKE LITTLE SIPS OF COFFEE. PT HAS NO FURTHER NEEDS CALL LIGHT WITHIN REACH.
--- NOTE | 2018-11-05 22:04 | NUR ---
CALLED DEBBIE BARKSDALE IN REFERENCE TO PT'S ANXIETY ABOUT POSSIBLE CHEST TUBE REMOVAL TOMORROW. PT WAS REQUESTING SOMETHING TO HELP HIM RELAX. RECEIVED ORDERS FOR ATARAX 25 MG PO EVERY 6 HOURS PRN, FOR ANXIETY.
--- NOTE | 2018-11-06 01:40 | NUR ---
PT'S HEART RATE WENT UP TO 140 TO 152. WENT INTO ROOM AND PT JUST HAD FINISHED USING URINAL. HEART RATE WENT BACK DOWN AFTER A COUPLE OF MINUTES. DEBBIE BARKSDALE NOTIFIED AND NO NEW ORDERS, JUST TO CONTINUE TO MONITOR PT. PT HAS CONCERNS ABOUT GETTING CHEST TUBE OUT. PT FEELS ANXIOUS ABOUT THEM TAKING IT OUT. PT FELT COLD AND FOR COMFORT, PLACED WARM BLANKETS ON HIM AND COVERED HIM BACK UP IT OTHER BLANKETS. PLACE PILLOW UNDER FEET DUE TO SWELLING AND FOR COMFORT. PT WAS COMFORTABLE AND WAS GOING TO TRY AND GO BACK TO SLEEP. NO FURTHER NEEDS, CALL LIGHT WITHIN REACH.
[2018-11-06 03:35] VITALS: BP 108/64; PULSE 82; TEMP 97.8
--- NOTE | 2018-11-06 05:24 | NUR ---
PT HAS NO OUTPUT FROM CHEST TUBE. WATER STILL UP TO LINE AND BUBBLING SOFTLY. PT WAS GIVEN PAIN MEDICATION FOR PAIN RATED AT 10/10 FOR LEFT SIDE ABOUT 0455 THIS AM. PT ALSO GIVEN ATARAX DUE TO ANXIETY. PT REPOSITIONED AND COMFORTABLE, NO FURTHER NEEDS, CALL LIGHT WITHIN REACH.
[2018-11-06 06:06] LABS: MEAN CELL VOLUME 83 fl (80.0-100.0); MEAN CORPUSCULAR HGB CONC 31 g/dl (33.0-37.0); MEAN PLATELET VOLUME 9.2 fl (7.4-10.4); PLATELET COUNT 483 K/mm3 (130-400); REDCELL DISTRIBUTION WIDTH-CV 19.9 % (11.5-14.5)
[2018-11-06 06:09] LABS: HEMATOCRIT 28.1 % (42.0-52.0); HEMOGLOBIN 8.7 g/dl (13.5-18.0); MEAN CORPUSCULAR HEMOGLOBIN 26 pg (27.0-31.0)
[2018-11-06 06:25] LABS: ALBUMIN 2.2 gm/dL (3.5-5.0); BILIRUBIN,TOTAL 0.2 mg/dL (0.0-1.0); CALCIUM 8.2 mg/dL (8.4-10.2); CREATININE, serum 0.78 (0.66-1.25); MAGNESIUM 1.8 mg/dL (1.6-2.3); PHOSPHOROUS 2.7 mg/dL (2.5-4.5); POTASSIUM 3.6 mmol/L (3.4-5.0); TOTAL PROTEIN 4.5 gm/dL (6.4-8.2)
[2018-11-06 06:53] LABS: ANISOCYTOSIS 1+; BAND 4 % (0-10); LYMPHOCYTE 2 % (20.0-51.0); METAMYELOCYTE 6 % (0-0); NEUTROPHILS 85 % (42.0-75.2); PLATELET ESTIMATE INCREASED (NORMAL)
--- NOTE | 2018-11-06 08:06 | NUR ---
Received report from KYRIE Stout.
[2018-11-06 08:30] VITALS: BP 109/67; PULSE 53; TEMP 97.5
--- NOTE | 2018-11-06 09:05 | NUR ---
Pt resting in the bed, talkative, family in room, shift assessments complete, lef Pt call light in reach, bed in lowest position.
--- NOTE | 2018-11-06 09:54 | NUR ---
Met with pt and daughter. They are anxiously awaiting decision regarding plan of care. per Dr Shaffer, the pleural effusion has improved. No word has been recieved from [facility] at this ti me.
--- NOTE | 2018-11-06 10:39 | NUR ---
ALEENA spoke with Jeremy from [facility]. He reports patient's insurance is reviewing referral. ALEENA will fax updates to Jeremy.
[2018-11-06 11:06] VITALS: BP 94/60; PULSE 81; TEMP 97.7
--- NOTE | 2018-11-06 12:25 | NUR ---
Treatment team met with pt and his daughter this morning and reviewed where we are and what questions still need to be answered. Rin verbalized concern that her father was confused about what all of this means especially related to code status and to hospice vs LTAC. I stayed after the rounding to visit with Luke and his daughter. Pt listened to what hospice is, must have someone staying with him at home 15/11 and that their would not be any more treatments, antibiotics, but would focus on comfort and being at home and with family. [facility] stay would be fighting the disease process and seeing if an improvement could occur. After listening pt reports that he still wants to fight and see if [facility] can make a difference in how he feels. But then he adds that if it doesn't change things--then he will be ready to come home for hospice. Work demands for daughter are a concern. She will talk with her employer and see if options are available. Contact information reinforced. Notified Deya NERI of the results of this conversation.
--- NOTE | 2018-11-06 19:04 | NUR ---
Report given to KYRIE Box
--- NOTE | 2018-11-06 19:20 | NUR ---
Shift assessment complete. Pt resting in bed, awake, a&o but frequently forgetfull, cooperative c cares. Pt reports c/o pain to "spine" et L chest tube removal site; PRN [place] admin per pt request. Chest tube removal site noted to L lateral chest; dressing C/D/I s complication. Tele in place. O2 per NC. PAC accessed to R chest, patent c good blood return. Pt denies further needs. Call light in reach, bed alarm on. Will continue to monitor.
[2018-11-06 19:45] VITALS: BP 112/77; PULSE 92; TEMP 97.9
[2018-11-06 23:43] VITALS: BP 139/84; PULSE 100; TEMP 97.3
[2018-11-07] VITALS (7 sets, daily range): BP systolic 100–129; BP diastolic 68–79; PULSE 67–114; TEMP 97.9–99.2
[2018-11-07 06:23] LABS: MEAN CELL VOLUME 84 fl (80.0-100.0); MEAN CORPUSCULAR HGB CONC 31 g/dl (33.0-37.0); MEAN PLATELET VOLUME 9.4 fl (7.4-10.4); PLATELET COUNT 446 K/mm3 (130-400); RED BLOOD COUNT 3.25 M/mm3 (4.20-5.60); REDCELL DISTRIBUTION WIDTH-CV 20.4 % (11.5-14.5)
[2018-11-07 06:34] LABS: HEMATOCRIT 27.2 % (42.0-52.0); HEMOGLOBIN 8.5 g/dl (13.5-18.0); MEAN CORPUSCULAR HEMOGLOBIN 26 pg (27.0-31.0)
[2018-11-07 06:37] LABS: CALCIUM 8.2 mg/dL (8.4-10.2); CREATININE, serum 0.74 (0.66-1.25); POTASSIUM 3.6 mmol/L (3.4-5.0)
--- NOTE | 2018-11-07 08:04 | NUR ---
Assessment completed, alert/oriented, vital signs stable, report some mild tenderness to left later chest / s/p chest tube site, no reps.difficulty at rest, lungs CTA/ LLL diminished, chest tube removed last night by , will have repeat CXR this morning, heart regular rythm / slightly tachycardic, SR on tele/ P.afib noted, 2+ edema noted to BLE, patient used urinal, refused to roll when asked if I could observe skin integrity to his coccyx/sacrum, I was reported to a healing pressure ulcer but unable to assess at this time, discussed plan of care and discharge plan / patient stated " only place im going from here is home", I ordered him breakfast and he denies other needs at this time
[2018-11-07 09:37] LABS: BAND 8 % (0-10); LYMPHOCYTE 4 % (20.0-51.0); NEUTROPHILS 84 % (42.0-75.2); PLATELET ESTIMATE INCREASED (NORMAL)
[2018-11-07 09:38] LABS: ANISOCYTOSIS 1+
--- NOTE | 2018-11-07 09:45 | NUR ---
I spoke with pt again today about his goals. He states he doesn't know anything about this [facility] and won't make a decision until he talks with his daughter. At this point we have not heard about insurance authorization. He does not remember the conversation yesterday with his daughter or his stated wish to go to [facility] and get better or else know he can't and go home with hospice. Each conversation frustrates patient and we have no more answers than at start if this discussion. I do not believe that his daughter will be here during the day as she stated she was going to work today.
--- NOTE | 2018-11-07 11:48 | NUR ---
ALEENA spoke with Jeremy from [employer]. He reports he has not gotten aprroval from insurance yet. ALEENA contacted the binder caser from patient's insurance to inquire if a medical writer has reviewed the request. ALEENA left a message.
--- NOTE | 2018-11-07 20:50 | NUR ---
Shift assessment complete. Pt resting in bed, awake, a&o c persistant underlying confusion, remains cooperative c cares. Pt reports continued pain to back et legs; PRN pain medical assistant dermatology per pt req. Portacath noted to R upper chest, patent c good blood return. Pt s further needs at this time. Call light in reach, bed alarm on. Will monitor.
[2018-11-08 02:39] VITALS: BP 110/64; PULSE 94; TEMP 98.3
--- NOTE | 2018-11-08 07:15 | NUR ---
Report received from KYRIE Box. pT in bed resting requesting warm blankets, will provide.
[2018-11-08 08:15] VITALS: BP 89/51; PULSE 129; TEMP 97.5
--- NOTE | 2018-11-08 08:51 | NUR ---
ALEENA spoke with the party planner from [facility] Medicaid, Елена. She reports that the prior auth for [facility] was denied. Елена reports that the medical assistant per diem for [facility] does not think that [facility] will not offer patient any further services than this facility can provide. ALEENA will inform hospitalist.
[2018-11-08 08:53] LABS: POTASSIUM 3.9 mmol/L (3.4-5.0)
[2018-11-08 08:56] LABS: MEAN CELL VOLUME 85 fl (80.0-100.0); MEAN CORPUSCULAR HGB CONC 31 g/dl (33.0-37.0); MEAN PLATELET VOLUME 9.4 fl (7.4-10.4); PLATELET COUNT 449 K/mm3 (130-400); RED BLOOD COUNT 3.36 M/mm3 (4.20-5.60); REDCELL DISTRIBUTION WIDTH-CV 21.5 % (11.5-14.5)
--- NOTE | 2018-11-08 09:00 | NUR ---
Assessment charted. Pt in bed resting but up to commode with PT, myself and TRANSPORTATION DEPARTMENT SUPERVISOR. cleaned linens. Pt tolerated well. R inner groin is reddened, addressed with rounding team. Pt c/o pain all over, PRN pain meds provided and addressed regimen with hospitalist team. Sacral dressing changed, stage 2 visualized. 02 at 3L NC. L chest tube site dressing CDI and will remain until tomorrow per Dr. Shaffer. PAC to [facility] with antibiotics infusing. K pad to back for pain and warmth and warm blankets provided for comfort. Will continue to monitor.
[2018-11-08 09:01] LABS: CALCIUM 8.5 mg/dL (8.4-10.2); CREATININE, serum 0.79 (0.66-1.25)
[2018-11-08 09:03] LABS: HEMATOCRIT 28.7 % (42.0-52.0); HEMOGLOBIN 8.9 g/dl (13.5-18.0); MEAN CORPUSCULAR HEMOGLOBIN 26 pg (27.0-31.0)
[2018-11-08 09:22] LABS: BAND 3 % (0-10); HYPOCHROMIA 1+; LYMPHOCYTE 4 % (20.0-51.0); NEUTROPHILS 92 % (42.0-75.2); PLATELET ESTIMATE INCREASED (NORMAL)
[2018-11-08 09:27] VITALS: BP 122/80; PULSE 122
--- NOTE | 2018-11-08 10:14 | NUR ---
Follow-up visit; Patient appears unaware of the level of care he is going to require once he is discharged from hospital. He states he has been having tests and doesn't know what the outcome is. [employer] spoke briefly with him on spiritual issues and how he might consider looking to a [employer] for comfort and stated she is available to help him with his spirituality.
[2018-11-08 10:59] VITALS: BP 99/61; PULSE 102; TEMP 97.7
--- NOTE | 2018-11-08 15:21 | NUR ---
ALEENA, doctor, PA, and [facility] Nurse met with patient and daughter about goals of care. Doctor explained to patient and daughter that [facility] was not approved and inquired about next steps. Patient's daughter inquired about SNF vs hospice. Doctor explained the differences between the two options. Daughter and patient ultimately chose to pursue hospice at the [facility] [place]. ALEENA contacted and faxed referral to [facility] at [facility]. Patient's daughter will tour the hospice house later today.
--- NOTE | 2018-11-08 15:30 | NUR ---
Family meeting with pt and daughter Piedad along with treatment team held too discuss where to go after [facility] declined transfer. Pt listens to his daughter who explains that he cannot go home alone--it would not be safe. Treatment for his condition has not been helping for the assisted. He would like to be comfortable. he is willing to go to a long-term or hospice house if he can afford it. Encouraged daughter to tour hospice house and we will work with referral there to see what charges would be. We will wait on the outcome of referral
--- NOTE | 2018-11-08 18:00 | NUR ---
Pt resting in bed, finally looks like he is able to get some sleep after giving the roxanol for pain. has moved to comfort care, daughter has been at bedside for most of day spending time with patient. will give bedside shift report to nightshift nurse who will resume care.
--- NOTE | 2018-11-08 21:43 | NUR ---
PT IN BED WITH HOB AT 30 DEGREE ANGLE, HAS PAIN AT 8/10 IN LEFT SIDE, LOWER BACK, AND BLE. GAVE ROXINAL 20MG PO FOR PAIN. PT HAS NO FURTHER NEEDS CALL LIGHT WITHIN REACH.
--- NOTE | 2018-11-09 01:28 | NUR ---
PT SLEEPING/RESTING AND DOES WAKE UP OCCASIONALLY. PT GIVEN PAIN MEDICATION REQUESTED FOR PAIN. PT ALSO CONTINUES TO REQUEST COFFEE, WHICH IS GIVEN REQUESTED. NO FURTHER NEEDS CALL LIGHT WITHIN REACH.
--- NOTE | 2018-11-09 05:32 | NUR ---
PT SLEEPING/RESTING WITH HOB ELEVATED TO 45 DEGREE ANGLE, WITH NO S/S OF PAIN OR DISCOMFORT NOTED. PT DID WAKE UP A COUPLE OF TIMES TO REQUEST COFFEE AND AFTER GETTING COFFEE WENT BACK TO SLEEP. CALL LIGHT WITHIN REACH.
[2018-11-09 05:56] VITALS: BP 150/90; PULSE 79; TEMP 98.7
[2018-11-09] MEDS ORDERED: ALBUTEROL0.83 MG/ML IH (08:20)
[2018-11-09] MEDS ORDERED: TRANSDERM-0.5 MG/21 TD (08:23)
[2018-11-09] MEDS ORDERED: FENTANYL 25 MCG TD (08:24)
[2018-11-09] MEDS ORDERED: ATIVAN 1MG T1 MG/TAB PO (08:24)
[2018-11-09] MEDS ORDERED: ROXANOL 20MG20 MG/ML SL (08:24)
[2018-11-09] MEDS ORDERED: CHERATUSSIN AC240 ML PO (08:24)
[2018-11-09] MEDS ORDERED: DULCOLAX S10 MG/SUPP RC (09:19)
[2018-11-09] MEDS ORDERED: SENOKOT S 50 MG1 TAB PO (09:28)
[2018-11-09] MEDS ORDERED: MIRALAX PA17 GM/Dose PO (09:29)
--- NOTE | 2018-11-09 09:55 | NUR ---
Patient is DRN and comfort cares only from this point on, will discharge to hospice today
--- NOTE | 2018-11-09 10:13 | NUR ---
Pt is officially on comfort care now and was given a comfort care quilt with explaination. When asked how he is doing, he replied he was "trying to keep things straightened out in his brain". Telemetry pads were removed and pt was provided with his menu. He requested that side rail be put up so he could hang onto it to help reposition and sit up as he would like
--- NOTE | 2018-11-09 13:22 | NUR ---
Patient will discharge to the [facility] today 11/09. SW faxed discharge orders to [facility] and arranged transportation via EMS at 2:30pm. Patient and daughter are aware of d/c time.
--- NOTE | 2018-11-09 14:43 | NUR ---
patient is transferring to hospice house, I have De-accessed [facility] a cath and patient is being transferred by [facility], daughter present at time of discharge
== END 2018-11-09 14:43 | disposition hospice, inpatient (51) | DRG 871 ==
LOC: COL.ER 11:56 → ICU 16:07 → SURG 16:07 → COL.ER 16:07 → SURG 10-30 01:02 → ICU 10-30 01:02 → SURG 10-31 16:18 → ICU 10-31 16:18 → MEDICAL 11-02 20:14
PROVIDERS: Family Medicine; Nurse Practitioner; Nurse Practitioner Family; Physician Assistant; Surgery; ADMIT Hospitalist
PROC: 0W9B00Z Drainage of Left Pleural Cavity with Drainage Device, Open Approach (ICD-10-PCS; principal; 2018-10-30 18:15)
PROC: 0W9B00Z Drainage of Left Pleural Cavity with Drainage Device, Open Approach (ICD-10-PCS; 2018-11-01)
DX: A41.9 Sepsis, unspecified organism (principal); J13 Pneumonia due to Streptococcus pneumoniae; D61.1 Drug-induced aplastic anemia; E43 Unspecified severe protein-calorie malnutrition; J91.8 Pleural effusion in other conditions classified elsewhere; C34.92 Malignant neoplasm of unspecified part of left bronchus or lung; C79.31 Secondary malignant neoplasm of brain; C79.89 Secondary malignant neoplasm of other specified sites; Z68.1 Body mass index [BMI] 19.9 or less, adult; R64 Cachexia; I48.91 Unspecified atrial fibrillation; D47.3 Essential (hemorrhagic) thrombocythemia; D63.8 Anemia in other chronic diseases classified elsewhere; Z72.0 Tobacco use
CPT/HCPCS: 99223-AI; 99232-AI; 99233-AI; 99239; A7048; J0456; J1160; J1644; J1650; J2270; J2543; J2704; J2930; J3010; J3370; J3475; J7030; J7050; J7512